=== PATIENT | male | born 1980 | race Caucasian/White ===

== ENCOUNTER 2017-09-24 11:53 | Inpatient (IN) | payer SELFPAY ==
[~2017-09-24] VITALS: Ht 170.2 cm; Wt 59.0 kg
[2017-09-24] MEDS ORDERED: LORazepam 2 MG/ML VIAL IM ONE (14:00)
[2017-09-24] MEDS ORDERED: HALOPERIDOL LACTATE 5 MG/ML VIAL IM ONE (14:00)
[2017-09-24 15:59] LABS: BASOPHILS % (AUTO) 0.4 % (0.0-2.0); EOSINOPHILS % (AUTO) 2.7 % (1.0-6.0); HEMATOCRIT 42.7 % (41-53); HEMOGLOBIN 14.8 g/dL (13.5-17.5); LYMPHOCYTES # (AUTO) 1.3 K/uL (1.0-4.8); LYMPHOCYTES % (AUTO) 24.6 % (22.0-44.0); MEAN CORPUSCULAR HEMOGLOBIN 33.5 pg (26.0-34.0); MEAN CORPUSCULAR HGB CONC 34.7 G/dL (31.0-37.0); MEAN CORPUSCULAR VOLUME 97 fL (80-100); MONOCYTES # (AUTO) 0.5 K/uL (0.1-1.0); MONOCYTES % (AUTO) 9.7 % (2.0-9.0); NEUTROPHILS # (AUTO) 3.3 K/uL (1.8-7.7); NEUTROPHILS % (AUTO) 62.6 % (40.0-70.0); PLATELET COUNT (AUTO) 225 K/uL (150-450); RED BLOOD CELL COUNT(AUTO) 4.42 MIL/uL (4.50-5.90); RED CELL DISTRIBUTION WIDTH 12.6 % (11.5-14.5)
[2017-09-24 16:09] LABS: ANION GAP 3 mmol/L (8-16); CALCIUM, TOTAL 8.4 mg/dL (8.8-10.5); CARBON DIOXIDE 29 mmol/L (22-29); CHLORIDE 107 mmol/L (98-107); CREATININE 0.77 mg/dL (0.60-1.30); GLOMERULAR FILTR. RATE CALC > 60 mL/min (>60); GLUCOSE,RANDOM 90 mg/dL (70-110); POTASSIUM 3.7 mmol/L (3.5-5.1); SODIUM SERUM 139 mmol/L (136-145); UREA NITROGEN, BLOOD 12 mg/dL (7-18)
[2017-09-24 16:15] LABS: ALANINE AMINOTRANSFERASE 28 U/L (12-78); ALBUMIN 3.7 g/dL (3.4-5.0); ALKALINE PHOSPHATASE 85 U/L (46-116); ASPARTATE AMINOTRANSFERASE 26 U/L (15-37); BILIRUBIN,TOTAL 0.3 mg/dL (0.1-1.0); TOTAL PROTEIN, SERUM 7.3 g/dL (6.4-8.2)
[2017-09-24] MEDS ORDERED: HALOPERIDOL 5 MG TABLET PO PRN (16:30)
[2017-09-24] MEDS ORDERED: LORazepam 2 MG TABLET PO PRN (16:30)
[2017-09-24] MEDS ORDERED: ZOLPIDEM TARTRATE 10 MG TABLET PO PRN (16:30)
[2017-09-24 17:21] LABS: AMPHET/METH SCREEN,URINE POSITIVE (NEGATIVE); BARBITURATE SCREEN, URINE NEGATIVE (NEGATIVE); BENZODIAZEPINES SCREEN,URINE POSITIVE (NEGATIVE); CANNABINOID SCREEN,URINE POSITIVE (NEGATIVE); COCAINE SCREEN,URINE NEGATIVE (NEGATIVE); METHADONE SCREEN, URINE NEGATIVE (NEGATIVE); OPIATE SCREEN,URINE NEGATIVE (NEGATIVE)
[2017-09-24 17:22] LABS: PHENCYCLIDINE SCREEN,URINE NEGATIVE (NEGATIVE)
[2017-09-24 20:15] VITALS: BP 128/78
[2017-09-24] MEDS ORDERED: IBUPROFEN 600 MG TABLET PO PRN (20:30)
[2017-09-25 08:14] VITALS: BP 102/58
[2017-09-25] MEDS: OMEPRAZOLE 20 MG CAPSULE PO SCH (13:15)
[2017-09-25] MEDS: DOCUSATE SODIUM 100 MG CAPSULE PO SCH (13:15)
[2017-09-25] MEDS ORDERED: IBUPROFEN 600 MG TABLET PO PRN (13:15)
[2017-09-25] MEDS ORDERED: ALBUTEROL SULFATE HFA 90 MCG/PUFF 8 GM INHALER IH PRN (13:15)
[2017-09-25] MEDS ORDERED: BENZOCAINE/MENTHOL LOZENGE MM PRN (13:15)
[2017-09-25] MEDS ORDERED: MAG HYDROX/AL HYDROX/SIMETH ES 30 ML SUSPENSION UDCUP PO PRN (13:15)
[2017-09-25] MEDS ORDERED: CloNIDine HCL 0.1 MG TABLET PO PRN (13:15)
[2017-09-25] MEDS ORDERED: PETROLATUM,WHITE 71 GM JELLY TP PRN (13:15)
[2017-09-25] MEDS ORDERED: MAGNESIUM HYDROXIDE SUSPENSION 30 ML UDCUP PO PRN (13:15)
[2017-09-25] MEDS ORDERED: LOPERAMIDE HCL 2 MG CAPSULE PO PRN (13:15)
[2017-09-25] MEDS ORDERED: BACITRACIN 28.4 GM OINTMENT TP PRN (13:15)
[2017-09-25] MEDS ORDERED: ACETAMINOPHEN 325 MG TABLET PO PRN (13:15)
[2017-09-25] MEDS ORDERED: ONDANSETRON HCL 4 MG TABLET PO PRN (13:15)
[2017-09-25 18:40] VITALS: BP 111/68
[2017-09-25] MEDS: RisperiDONE 1 MG TABLET PO SCH (20:33)
[2017-09-26 08:20] VITALS: BP 118/85
[2017-09-26] MEDS: DOCUSATE SODIUM 100 MG CAPSULE PO SCH (09:13)
[2017-09-26] MEDS: RisperiDONE 1 MG TABLET PO SCH ×2 (09:13→20:15)
[2017-09-26] MEDS: OMEPRAZOLE 20 MG CAPSULE PO SCH (09:13)
[2017-09-26 20:29] VITALS: BP 132/79
[2017-09-27 08:20] VITALS: BP 118/62
[2017-09-27] MEDS: OMEPRAZOLE 20 MG CAPSULE PO SCH (08:29)
[2017-09-27] MEDS: RisperiDONE 1 MG TABLET PO SCH (08:29)
[2017-09-27] MEDS: DOCUSATE SODIUM 100 MG CAPSULE PO SCH (08:29)
[2017-09-27] MEDS ORDERED: RISP1 PO (13:32)
== END 2017-09-27 14:00 | disposition home or self-care (01) | DRG 885 ==
LOC: EMS 12:00 → 3EC 17:59 → EMS 18:55
PROVIDERS: ADMIT Psychiatry & Neurology Child & Adolescent Psychiatry; ATTEND Psychiatry & Neurology Child & Adolescent Psychiatry
DX: F29 Unspecified psychosis not due to a substance or known physiological condition (principal); F15.90 Other stimulant use, unspecified, uncomplicated; F12.90 Cannabis use, unspecified, uncomplicated; F41.9 Anxiety disorder, unspecified; G47.00 Insomnia, unspecified; K59.00 Constipation, unspecified; E83.51 Hypocalcemia; R45.87 Impulsiveness; S62.102A Fracture of unspecified carpal bone, left wrist, initial encounter for closed fracture; X58.XXXA Exposure to other specified factors, initial encounter; Z53.20 Procedure and treatment not carried out because of patient's decision for unspecified reasons; Z65.3 Problems related to other legal circumstances; Z59.0 Homelessness; Z78.1 Physical restraint status; Y93.89 Activity, other specified; Y92.89 Other specified places as the place of occurrence of the external cause
CPT/HCPCS: 96372; 99285; G0480; J1630; J2060

== ENCOUNTER 2017-10-06 22:17 | Inpatient (IN) | payer MEDICAID, OTHER ==
[~2017-10-06] VITALS: Ht 170.2 cm; Wt 59.0 kg
[~2017-10-06 22:17] MED LIST: RISP1 PO
[2017-10-06 22:55] LABS: BASOPHILS % (AUTO) 0.5 % (0.0-2.0); EOSINOPHILS % (AUTO) 1.4 % (1.0-6.0); HEMATOCRIT 37.4 % (41-53); HEMOGLOBIN 13.2 g/dL (13.5-17.5); LYMPHOCYTES # (AUTO) 1.8 K/uL (1.0-4.8); LYMPHOCYTES % (AUTO) 22.4 % (22.0-44.0); MEAN CORPUSCULAR HEMOGLOBIN 33.8 pg (26.0-34.0); MEAN CORPUSCULAR HGB CONC 35.3 G/dL (31.0-37.0); MEAN CORPUSCULAR VOLUME 96 fL (80-100); MONOCYTES # (AUTO) 0.9 K/uL (0.1-1.0); MONOCYTES % (AUTO) 10.7 % (2.0-9.0); NEUTROPHILS # (AUTO) 5.3 K/uL (1.8-7.7); PLATELET COUNT (AUTO) 251 K/uL (150-450); RED CELL DISTRIBUTION WIDTH 12.1 % (11.5-14.5)
[2017-10-06 23:02] LABS: ANION GAP 5 mmol/L (8-16); CALCIUM, TOTAL 8.4 mg/dL (8.8-10.5); CARBON DIOXIDE 30 mmol/L (22-29); CHLORIDE 108 mmol/L (98-107); CREATININE 1.08 mg/dL (0.60-1.30); GLOMERULAR FILTR. RATE CALC > 60 mL/min (>60); GLUCOSE,RANDOM 99 mg/dL (70-110); POTASSIUM 3.8 mmol/L (3.5-5.1); SODIUM SERUM 143 mmol/L (136-145); UREA NITROGEN, BLOOD 17 mg/dL (7-18)
[2017-10-06 23:10] LABS: ALANINE AMINOTRANSFERASE 30 U/L (12-78); ALBUMIN 3.5 g/dL (3.4-5.0); ALKALINE PHOSPHATASE 91 U/L (46-116); ASPARTATE AMINOTRANSFERASE 29 U/L (15-37); BILIRUBIN,TOTAL 0.3 mg/dL (0.1-1.0)
[2017-10-06] MEDS ORDERED: ZOLPIDEM TARTRATE 10 MG TABLET PO PRN (23:15)
[2017-10-07] MEDS ORDERED: ACETAMINOPHEN 325 MG TABLET PO ONE (00:15)
[2017-10-07] MEDS: LORazepam 2 MG TABLET PO PRN (00:18)
[2017-10-07 03:13] LABS: CHOL/HDL RATIO 2.3 (4.2-7.3); CHOLESTEROL 116 mg/dL (131-200); HDL CHOLESTEROL 50 mg/dL (40-60); LDL CHOL (CALC.) 45 mg/dL (0-130); TRIGLYCERIDES 104 mg/dL (15-150)
[2017-10-07] MEDS ORDERED: LORazepam 2 MG/ML VIAL ONE (14:09)
[2017-10-07] MEDS ORDERED: DiphenhydrAMINE HCL 50 MG/ML VIAL ONE (14:10)
[2017-10-07] MEDS ORDERED: HALOPERIDOL LACTATE 5 MG/ML VIAL ONE (14:10)
[2017-10-07] MEDS ORDERED: DiphenhydrAMINE HCL 50 MG/ML VIAL IM ONE (14:30)
[2017-10-07] MEDS ORDERED: LORazepam 2 MG/ML VIAL IM ONE (14:30)
[2017-10-07] MEDS ORDERED: HALOPERIDOL LACTATE 5 MG/ML VIAL IM ONE (14:30)
[2017-10-07 16:37] LABS: AMPHET/METH SCREEN,URINE POSITIVE (NEGATIVE); BARBITURATE SCREEN, URINE NEGATIVE (NEGATIVE); BENZODIAZEPINES SCREEN,URINE NEGATIVE (NEGATIVE); CANNABINOID SCREEN,URINE POSITIVE (NEGATIVE); COCAINE SCREEN,URINE NEGATIVE (NEGATIVE); METHADONE SCREEN, URINE NEGATIVE (NEGATIVE); OPIATE SCREEN,URINE NEGATIVE (NEGATIVE)
[2017-10-07 16:39] LABS: PHENCYCLIDINE SCREEN,URINE NEGATIVE (NEGATIVE)
[2017-10-07 17:37] VITALS: BP 114/75
[2017-10-08 06:24] VITALS: BP 106/63
[2017-10-08 08:02] VITALS: BP 107/62
[2017-10-08 16:00] VITALS: BP 108/67
[2017-10-08] MEDS: RisperiDONE 2 MG TABLET PO SCH (20:15)
[2017-10-09 04:51] VITALS: BP 118/74
[2017-10-09 08:18] VITALS: BP 128/64
[2017-10-09] MEDS: RisperiDONE 2 MG TABLET PO SCH ×2 (08:21→20:24)
[2017-10-09] MEDS ORDERED: LOPERAMIDE HCL 2 MG CAPSULE PO PRN (13:30)
[2017-10-09] MEDS ORDERED: BACITRACIN 28.4 GM OINTMENT TP PRN (13:30)
[2017-10-09] MEDS ORDERED: MAG HYDROX/AL HYDROX/SIMETH ES 30 ML SUSPENSION UDCUP PO PRN (13:30)
[2017-10-09] MEDS ORDERED: ACETAMINOPHEN 325 MG TABLET PO PRN (13:30)
[2017-10-09] MEDS ORDERED: BENZOCAINE/MENTHOL LOZENGE MM PRN (13:30)
[2017-10-09] MEDS ORDERED: PETROLATUM,WHITE 71 GM JELLY TP PRN (13:30)
[2017-10-09] MEDS: IBUPROFEN 600 MG TABLET PO PRN (13:59)
[2017-10-09 16:00] VITALS: BP 124/71
[2017-10-10 03:24] VITALS: BP 136/89
[2017-10-10] MEDS: LORazepam 2 MG TABLET PO PRN (03:30)
[2017-10-10] MEDS: IBUPROFEN 600 MG TABLET PO PRN ×2 (03:30→20:08)
[2017-10-10 08:12] VITALS: BP 123/75
[2017-10-10] MEDS: RisperiDONE 2 MG TABLET PO SCH ×2 (08:29→20:07)
[2017-10-10] MEDS: OMEPRAZOLE 20 MG CAPSULE PO SCH (08:29)
[2017-10-10 16:02] VITALS: BP 114/78
[2017-10-11 04:34] VITALS: BP 129/84
[2017-10-11 04:40] VITALS: BP 118/87
[2017-10-11] MEDS: LORazepam 2 MG TABLET PO PRN (04:48)
[2017-10-11] MEDS: IBUPROFEN 600 MG TABLET PO PRN ×2 (04:48→16:16)
[2017-10-11 08:30] VITALS: BP 148/82
[2017-10-11] MEDS: RisperiDONE 2 MG TABLET PO SCH ×2 (08:39→20:23)
[2017-10-11] MEDS: OMEPRAZOLE 20 MG CAPSULE PO SCH (08:39)
[2017-10-11 16:14] VITALS: BP 134/68
[2017-10-11 16:18] VITALS: BP 134/68
[2017-10-12 00:47] VITALS: BP 138/83
[2017-10-12 08:02] VITALS: BP 130/70
[2017-10-12] MEDS: OMEPRAZOLE 20 MG CAPSULE PO SCH (08:36)
[2017-10-12] MEDS: RisperiDONE 2 MG TABLET PO SCH ×2 (08:36→20:32)
[2017-10-12 16:00] VITALS: BP 137/75
[2017-10-12] MEDS: HALOPERIDOL 5 MG TABLET PO PRN (16:24)
[2017-10-12] MEDS: LORazepam 2 MG TABLET PO PRN (16:24)
[2017-10-13 03:05] VITALS: BP 119/74
[2017-10-13] MEDS: IBUPROFEN 600 MG TABLET PO PRN (03:07)
[2017-10-13 08:01] VITALS: BP 138/71
[2017-10-13] MEDS: RisperiDONE 2 MG TABLET PO SCH ×2 (08:55→20:46)
[2017-10-13] MEDS: OMEPRAZOLE 20 MG CAPSULE PO SCH (08:55)
[2017-10-13 16:00] VITALS: BP 110/70
[2017-10-13] MEDS: HALOPERIDOL 5 MG TABLET PO PRN (16:40)
[2017-10-13] MEDS: LORazepam 2 MG TABLET PO PRN (16:40)
[2017-10-14 05:52] VITALS: BP 112/60
[2017-10-14] MEDS: RisperiDONE 2 MG TABLET PO SCH (09:00)
[2017-10-14] MEDS: OMEPRAZOLE 20 MG CAPSULE PO SCH (09:29)
[2017-10-14 09:34] VITALS: BP 125/60
[2017-10-14] MEDS: IBUPROFEN 600 MG TABLET PO PRN (09:34)
[2017-10-14] MEDS ORDERED: RISP2 PO (10:37)
[2017-10-14] MEDS ORDERED: OMEP20 PO (10:38)
== END 2017-10-14 10:45 | disposition home or self-care (01) | DRG 751 ==
LOC: EMS 22:18 → B3A 10-07 15:46
PROVIDERS: ADMIT Psychiatry & Neurology Child & Adolescent Psychiatry; ATTEND Psychiatry & Neurology Child & Adolescent Psychiatry
DX: F29 Unspecified psychosis not due to a substance or known physiological condition (principal); F15.20 Other stimulant dependence, uncomplicated; F25.0 Schizoaffective disorder, bipolar type; S52.202A Unspecified fracture of shaft of left ulna, initial encounter for closed fracture; F12.20 Cannabis dependence, uncomplicated; F17.210 Nicotine dependence, cigarettes, uncomplicated; W19.XXXA Unspecified fall, initial encounter; F41.9 Anxiety disorder, unspecified; G47.00 Insomnia, unspecified; Z91.14 Patient's other noncompliance with medication regimen; Z79.899 Other long term (current) drug therapy; Y92.89 Other specified places as the place of occurrence of the external cause; Y99.8 Other external cause status; Y93.89 Activity, other specified; Z71.51 Drug abuse counseling and surveillance of drug abuser; Z71.6 Tobacco abuse counseling; Z78.1 Physical restraint status
CPT/HCPCS: 87081; 96372; 99285; G0480; J1200; J1630; J2060